=== PATIENT | female | born 1950 | race Asian ===

== ENCOUNTER 2019-09-01 07:43 | Day surgery (SDC) | payer OTHER ==
[2019-09-01 08:43] LABS: PLATELET COUNT 265 K/uL (152-353)
[2019-09-01 08:46] LABS: POTASSIUM 4.1 mmol/L (3.6-5.2)
[2019-09-01 08:53] LABS: PARTIAL THROMBOPLASTIN TIME 29.4 SECONDS (24.5-33.6)
== END 2019-09-01 11:30 | disposition home or self-care (01) ==
LOC: OR 07:43
PROVIDERS: Pain Medicine Interventional Pain Medicine
PROC: 00HU3MZ Insertion of Neurostimulator Lead into Spinal Canal, Percutaneous Approach (ICD-10-PCS; principal; 2019-09-01)
PROC: 4B01XVZ Measurement of Peripheral Nervous Stimulator, External Approach (ICD-10-PCS; 2019-09-01)
DX: M54.12 Radiculopathy, cervical region (principal); Z79.01 Long term (current) use of anticoagulants
CPT/HCPCS: 80053; 85027; 85610; 85730; 93005; J0690; J2001; J2250; J2405; J2704